=== PATIENT | male | born 1960 | race Caucasian/White ===

== ENCOUNTER 2017-02-02 09:44 | Emergency (ER) | payer OTHER ==
[~2017-02-02] VITALS: Ht 190.5 cm; Wt 111.1 kg
[2017-02-02 09:49] VITALS: BP 166/91
[2017-02-02] MEDS ORDERED: PRAVASTATIN SOD10 M2 PO (10:15)
[2017-02-02] MEDS ORDERED: LISINOPRIL10 M1 PO (10:15)
[2017-02-02] MEDS ORDERED: METFORMIN HCL500 M3 PO (10:16)
--- NOTE | 2017-02-02 10:55 | ED EYE COMPLAINT ---
History of Present Illness General Chief Complaint: General Adult Stated Complaint: EYE SWELLING/REDNESS X4 DAYS Source: patient, old records Exam Limitations: no limitations Vital Signs & Intake/Output Vital Signs & Intake/Output Vital Signs Date Time Temp Pulse Resp B/P Pulse O2 O2 Flow FiO2 Ox Delivery Rate 02/02 0949 97.0 80 20 166/91 97 Room Air Allergies Coded Allergies: NO KNOWN ALLERGIES (05/17/13) Reconcile Medications Cephalexin (Keflex) 500 MG CAPSULE 1 CAP PO TID CELLULITIS Lisinopril 10 MG TABLET 1 TAB PO DAILY HEART (Reported) Metformin HCl 500 MG TABLET 1 TAB PO BID DIABETES (Reported) Polytrim (Polytrim Eye Drops) 10,000 UNIT-1 MG/ML DROPS 1 GTT OPH Q6 STYE Pravastatin Sodium 10 MG TABLET 1 TAB PO DAILY CHOLESTEROL (Reported) Triage Note: PT TO ED LEFT EYE SWELLING AND REDNESS X 4 DAYS. DENIES PAIN TO EYE. STATES VISION IS OK. Triage Nurses Notes Reviewed? yes Onset: Gradual Duration: day(s): (4), constant Timing: recent history Injury Environment: home Severity: mild Severity Numbers: 4 No Modifying Factors: none HPI: 56-year-old male with history of hypertension and high cholesterol diabetes presents to emergency room complaining of a four-day history of left upper eyelid swelling and redness. He denies any known injury trauma or foreign body sensation. He does not wear glasses or contacts. The patient states that he recall a specific incident prior to the episode beginning. The patient states that he had an episode similar to this several years ago however not as severe. He denies any redness to his eye, discharge, no right eye symptoms. He denies any other facial swelling redness warmth or rashes. He denies fever chills sore throat and rhinorrhea. He reports it intermittently a left-sided scalp headache which she's been taking ibuprofen with resolution. There is no other recent trauma or fall no other modifying factors or associated symptoms Past History Travel History Traveled to [place] past 21 day No Medical History Any Pertinent Medical History? see below for history Cardiovascular: BORDERLINE HTN BORDERLINE HIGH CHOLEST. Endocrine: BORDERLINE DM Surgical History Surgical History: non-contributory Psychosocial History What is your primary language Icelandic Tobacco Use: Quit >30 days ago ETOH Use: denies use Illicit Drug Use: denies illicit drug use Family History Hx Contributory? No Review of Systems Review of Systems Constitutional: Reports: see HPI. All Other Systems: Reviewed and Negative Comments Review of systems: See HPI, All other systems negative. Constitutional, no chills no fever, no malaise HEENT: No visual changes no sore throat no congestion, no ear pain Cardiovascular: No chest pain , no palpitation , no orthopnea no ankle swelling Skin, no jaundice no rashes, no change in skin Respiratory: No dyspnea no cough no sputum GI: No nausea no vomiting, no diarrhea : No dysuria Muscle skeletal: No joint pain, no joint swelling, no back pain, no neck pain, Neurologic: No numbness, no headache Psych: No stress Heme/endocrine: No bruising no bleeding Immunology: No lymphadenopathy Physical Exam General Appearance: well developed/nourished, no apparent distress, alert, awake , comfortable General Inspection: normal inspection Eyelid: edema (upper eyelid), erythema Conjunctiva/Sclera: normal inspection Cornea: normal inspection EOM: intact Pupil: normal accommodation, normal pupil, PERRL General Inspection: normal inspection Physical Exam Comments: Well-developed well-nourished patient in no apparent distress. Head/Face: Atraumatic, no maxillary/frontal sinus tenderness, no facial swelling there is no rash noted to the scalp or face, there is no tenderness over the temporal arteries Eyes: There is erythema and mild swelling over the left upper eyelid, the eyelids were reverted there is no visualized foreign body, there is no tenderness to palpation over the swelling of the lid, no discharge noted, no evidence of entrapment PERRL, EOMI, no conjunctival injection. No nystagmus Ear:External auditory canals clear Nose: atraumatic.Normal inspection: No bleeding, Throat: Moist mucous membranes.Pharynx normal. No pharyngeal erythema/exudate seen. No stridor/drooling or assymetry. No swelling or edema. Neck: Supple, no lymphadenopathy, FROM Back: FROM, Nontender Cardiovascular: Regular rate and rhythms no murmurs Respiratory: No respiratory distress. Patient speaking in full complete sentences. Breath sounds clear to auscultation bilaterally: NO W/R/R Extremities: full range of motion Neuro: Alert and oriented x3 Skin: Warm & dry;No appreciable rash on exposed skin Psych: Mood affect normal, normal memory normal judgment. Progress Differential Diagnosis: corneal abrasion, corneal foreign body, conjunctivitis, detached retina, glaucoma, chalazion, hodreulum, fb, temp artertis, periorbital/ orbital cellulitis, shingles Plan of Care: Patient denies foreign body sensation he denies pain only complaining of swelling redness to the upper eyelid. I discussed with him need for close follow-up with his primary care as well as ophthalmology in 48 hours, I advised return anytime sooner if he develops worsening swelling redness to his face headache fever chills or vision changes discussed with him that there was the possibility of a foreign body not seen on examination however, I advised to return with any concerns answered all his questions he feels comfortable this plan Departure Departure Time of Disposition: 1099 Disposition: HOME OR SELF CARE Condition: Stable Clinical Impression Primary Impression: Chalazion left upper eyelid Referrals: KOBE SUE,ALLISON Yang (PCP/Family) SERA SUE,CHAZ Rudolph Additional Instructions: FOLLOW UP WITH DR BULLOCK DISCUSSED WELL LINEN KEEPER DR ZAMORA IN 48 HOURS POLYTRIM EYE DROPS AND KEFLEX DIRECTED. THESE WERE SENT TO YOUR PHARMACY. TYLENOL OR MOTRIN NEEDED. RETURN TO THE ER IMMEDIATELY OR ANYTIME SOONER IF SYMTPOMS PERSIST, YOU DEVELOP RASH TO YOUR SCALP, FACE, WORSENING REDNESS, VISON CHANGES, FEVER, CHILLS OR ANY OTHER CONCERNS Departure Forms: Customer Survey General Discharge Information Prescriptions: Current Visit Scripts Polytrim (Polytrim Eye Drops) 1 GTT OPH Q6 #10 ML Cephalexin (Keflex) 1 CAP PO TID #21 CAP
[2017-02-02] MEDS ORDERED: KEFLEX500 M1 PO (11:02)
[2017-02-02] MEDS ORDERED: POLYTRIM EYE DR10 ML OPH (11:02)
== END 2017-02-02 11:05 ==
LOC: ERH 09:44
DX: H00.14 Chalazion left upper eyelid (principal)